=== PATIENT | female | born 1940 | race Caucasian/White ===

== ENCOUNTER 2018-06-04 11:51 | Inpatient (IN) | payer OTHER ==
[~2018-06-04] VITALS: Ht 160 cm; Wt 80.7 kg
[~2018-06-04 11:51] MED LIST: AVAPRO300 MG PO; CALTRATE 600+D1 EAC1 PO; CARDURA8 MG PO; DILTIAZEM 24HR120 MG PO; SYNTHR PO
[2018-06-18] MEDS ORDERED: LEVO-T25 MCG PO (11:25)
[2018-06-18] MEDS ORDERED: AMOX-CLAV 875-1 EACH PO (13:59)
[2018-06-18] MEDS ORDERED: PERCOCET 5-3251 EACH PO (13:59)
[2018-06-18] MEDS ORDERED: CLONAZEPAM1 MG PO (13:59)
[2018-06-18] MEDS ORDERED: DOCUSATE SODIU100 MG PO (13:59)
[2018-06-18] MEDS ORDERED: GABAPENTIN800 MG PO (13:59)
== END 2018-06-19 20:12 | disposition home or self-care (01) | DRG 455 ==
LOC: O/R 06-18 05:05 → SURH 06-18 05:05
PROVIDERS: ADMIT Orthopaedic Surgery Orthopaedic Surgery of the Spine
PROC: 0SG1071 Fusion of 2 or more Lumbar Vertebral Joints with Autologous Tissue Substitute, Posterior Approach, Posterior Column, Open Approach (ICD-10-PCS; 2018-06-18)
PROC: 0SG10AJ Fusion of 2 or more Lumbar Vertebral Joints with Interbody Fusion Device, Posterior Approach, Anterior Column, Open Approach (ICD-10-PCS; 2018-06-18)
PROC: 0ST20ZZ Resection of Lumbar Vertebral Disc, Open Approach (ICD-10-PCS; 2018-06-18)
PROC: 07DS0ZZ Extraction of Vertebral Bone Marrow, Open Approach (ICD-10-PCS; 2018-06-18)
PROC: 4A12X4Z Monitoring of Cardiac Electrical Activity, External Approach (ICD-10-PCS; 2018-06-18)
PROC: 0SG10A0 Fusion of 2 or more Lumbar Vertebral Joints with Interbody Fusion Device, Anterior Approach, Anterior Column, Open Approach (ICD-10-PCS; principal; 2018-06-18 12:30)
DX: M47.26 Other spondylosis with radiculopathy, lumbar region (principal); M48.062 Spinal stenosis, lumbar region with neurogenic claudication; M51.16 Intervertebral disc disorders with radiculopathy, lumbar region; I10 Essential (primary) hypertension; E03.8 Other specified hypothyroidism

== ENCOUNTER → 2023-01-05 06:00 | Outpatient (CLI) | payer OTHER ==
[~2023-01-05] VITALS: Ht 160 cm; Wt 68.0 kg
[~2023-01-05 06:00] MED LIST changes: +AMOX-CLAV 875-1 EACH PO; +CLONAZEPAM1 MG PO; +DOCUSATE SODIU100 MG PO; +GABAPENTIN800 MG PO; +LEVO-T25 MCG PO; +PERCOCET 5-3251 EACH PO
== END | disposition home or self-care (01) ==
LOC: LAB 06:00 → SURH 01-09 08:45 → EDSTATUS 01-09 08:45 → SURH 01-09 11:30
PROVIDERS: ATTEND Orthopaedic Surgery Orthopaedic Surgery of the Spine
DX: Z01.810 Encounter for preprocedural cardiovascular examination (principal); M48.062 Spinal stenosis, lumbar region with neurogenic claudication; M48.07 Spinal stenosis, lumbosacral region; M43.17 Spondylolisthesis, lumbosacral region; M54.17 Radiculopathy, lumbosacral region

== ENCOUNTER 2024-04-29 05:15 | Day surgery (SDC) | payer OTHER ==
[2024-04-25 12:09] LABS: MEAN CORPUSCULAR HEMOGLOBIN 28.4 pg (27.00-32.0); MEAN CORPUSCULAR HGB CONC 32.3 g/dl (32.0-36.0); PLATELET COUNT 255 K/uL (150-450); RED BLOOD COUNT 4.21 M/uL (4.00-6.00); RED CELL DISTRIBUTION WIDTH 14.5 % (11.5-14.5)
[2024-04-25 12:26] LABS: INR 0.96; PARTIAL THROMBOPLASTIN TIME 32.5 SECONDS (22.0-34.0); PROTHROMBIN TIME 10.5 SECONDS (9.0-11.5)
[2024-04-25 12:27] LABS: CALCIUM 9.5 mg/dL (8.5-10.1); CREATININE SERUM 0.84 mg/dL (0.55-1.02); GFR 64.91
[2024-04-25 13:14] LABS: T4 TOTAL 10.48 UG/DL (4.8-13.9); TSH 1.15 uIU/mL (0.358-3.74)
[2024-04-25 13:48] VITALS: BP 120/70
[2024-04-25 14:20] LABS: PH,URINE 5.5 (5.0-8.0); URINE APPEARANCE Cloudy; URINE BILIRRUBIN Negative (NEGATIVE); URINE BLOOD Negative; URINE COLOR Yellow; URINE GLUCOSE Negative (NEGATIVE); URINE KETONE Trace (NEGATIVE); URINE LEUKOCYTE Small; URINE NITRATE Negative; URINE PROTEIN Trace (NEGATIVE); URINE UROBILINOGEN 0.2 E.U./dl
[2024-04-25 14:24] LABS: URINE EPITHELIAL CELLS 26.9 uL (0.0-38.8); URINE RBC 20.1 uL (0.0-20.8); URINE WBC 121.1 uL (0.0-23.2)
[2024-04-25 15:01] LABS: URINE BACTERIA > 9821.5 uL (0.0-1933); URINE CAST 0.14 uL (0.0-1.40); URINE MUCUS MODERATE
[~2024-04-29] VITALS: Ht 160 cm; Wt 68.0 kg
[~2024-04-29 05:15] MED LIST changes: +CARDURA XL4 MG PO; +DOXAZOSIN MESYLA2 MG PO
[2024-04-29] MEDS ORDERED: MEDROLPACK PO (10:34)
[2024-04-29] MEDS ORDERED: PERCOCET 5-3251 EACH PO (10:34)
[2024-04-29] MEDS ORDERED: AMOX-CLAV 875-1 EACH PO (10:34)
[2024-04-29] MEDS ORDERED: COLACE100 MG PO (10:34)
[2024-04-29] MEDS ORDERED: ZOFRAN8 MG PO (10:35)
[2024-04-29] MEDS ORDERED: GABAPENTIN100 M2 PO (10:35)
[2024-04-29] MEDS ORDERED: NEURONTIN300 MG PO (10:35)
[2024-04-29] MEDS ORDERED: METHYLPREDNISOLONE SOD SUCC 40 MG VIAL ONE (10:39)
[2024-04-29] MEDS ORDERED: METHYLPREDNISOLONE ACETATE 80 MG/ML VIAL ONE (10:39)
[2024-04-29] MEDS ORDERED: HEMOSTATIC MATRIX WITH THROMBIN KIT TOP ONE (10:40)
[2024-04-29] MEDS ORDERED: CEFAZOLIN SODIUM 1,000 MG VIAL ONE (10:45)
[2024-04-29] MEDS ORDERED: ENALAPRILAT DIHYDRATE 1.25 MG/ML VIAL IV PRN (10:45)
[2024-04-29] MEDS ORDERED: 0.9 % SODIUM CHLORIDE 1,000 ML IV SCH (10:45)
[2024-04-29] MEDS ORDERED: PROMETHAZINE HCL 50 MG/ML AMPUL IM PRN (10:45)
[2024-04-29] MEDS ORDERED: MORPHINE SULFATE 4 MG/ML CARTRIDGE IV SCH (13:00)
[2024-04-29] MEDS ORDERED: FAMOtidine 20 MG TABLET PO SCH (17:00)
[2024-04-29] MEDS ORDERED: METHYLPREDNISOLONE SOD SUCC 125 MG VIAL IV SCH (17:00)
[2024-04-29] MEDS ORDERED: DOCUSATE SODIUM 100MG CAP PO SCH (17:00)
[2024-04-29] MEDS ORDERED: CEFAZOLIN SODIUM 1,000 MG in 0.9 % SODIUM CHLORIDE 50 ML IV SCH (17:00)
[2024-04-29] MEDS ORDERED: ACETAMINOPHEN 500 MG GEL..CAP PO SCH (20:00)
[2024-04-29] MEDS ORDERED: VANCOMYCIN HCL 1,000 MG VIAL IV SCH (21:00)
[2024-04-29] MEDS ORDERED: GABAPENTIN 800 MG TABLET PO SCH (21:00)
[2024-04-30] MEDS ORDERED: SODIUM CHLORIDE 0.45 % 1,000 ML IV SCH
[2024-04-30] MEDS ORDERED: OxyCODONE HCL 5 MG TABLET (ROXICODONE) PO PRN (06:01)
[2024-04-30] MEDS ORDERED: TAMSULOSIN HCL 0.4 MG CAP PO SCH (09:00)
[2024-04-30] MEDS ORDERED: DOXAZOSIN MESYLATE 4 MG TABLET PO SCH (09:00)
[2024-04-30] MEDS ORDERED: IRBESARTAN 300 MG TABLET PO SCH (09:00)
== END 2024-04-29 12:02 | disposition home or self-care (01) ==
LOC: CIR.AMB 05:15 → O/R 05:15 → SURH 05:15 → EDSTATUS 10:45 → O/R 12:02 → CIR.AMB 12:02
PROVIDERS: ATTEND Orthopaedic Surgery Orthopaedic Surgery of the Spine
DX: M48.02 Spinal stenosis, cervical region (principal); M51.360 Other intervertebral disc degeneration, lumbar region with discogenic back pain only; D66 Hereditary factor VIII deficiency; Z53.09 Procedure and treatment not carried out because of other contraindication

== ENCOUNTER 2024-04-29 12:54 | Outpatient (CLI) | payer OTHER ==
[~2024-04-29 12:54] MED LIST changes: +COLACE100 MG PO; +GABAPENTIN100 M2 PO; +MEDROLPACK PO; +NEURONTIN300 MG PO; +ZOFRAN8 MG PO
[2024-04-29 13:35] LABS: HEMATOCRIT 35.6 % (36.0-45.00); MEAN CELL VOLUME 85.7 fL (80.00-100.00); MEAN CORPUSCULAR HGB CONC 33.8 g/dl (32.0-36.0); PLATELET COUNT 242 K/uL (150-450); RED BLOOD COUNT 4.15 M/uL (4.00-6.00); RED CELL DISTRIBUTION WIDTH 14.5 % (11.5-14.5)
[2024-04-29 13:53] LABS: COL EPI 84 SECONDS (82-175)
[2024-04-29 13:55] LABS: INR 0.99; PARTIAL THROMBOPLASTIN TIME 33.1 SECONDS (22.0-34.0); PROTHROMBIN TIME 10.8 SECONDS (9.0-11.5)
== END 2024-04-29 13:03 | disposition home or self-care (01) ==
LOC: LAB 12:54
PROVIDERS: ATTEND Anesthesiology
DX: D68.9 Coagulation defect, unspecified (principal)

== ENCOUNTER 2024-05-29 12:09 | Inpatient (IN) | payer OTHER ==
[~2024-05-29] VITALS: Ht 91.4 cm; Wt 71.7 kg
[2024-05-29 13:01] VITALS: BP 134/72
[2024-06-03] MEDS ORDERED: CEFAZOLIN SODIUM 1,000 MG VIAL ONE (07:20)
[2024-06-03] MEDS ORDERED: HEMOSTATIC MATRIX WITH THROMBIN KIT TOP ONE (07:22)
[2024-06-03] MEDS ORDERED: PERCOCET 5-3251 EACH PO (07:25)
[2024-06-03] MEDS ORDERED: AMOX-CLAV 875-1 EACH PO (07:25)
[2024-06-03] MEDS ORDERED: COLACE100 MG PO (07:25)
[2024-06-03] MEDS ORDERED: GABAPENTIN100 M2 PO (07:26)
[2024-06-03] MEDS ORDERED: NEURONTIN800 MG PO (07:26)
[2024-06-03] MEDS ORDERED: ZOFRAN8 MG PO (07:26)
[2024-06-03] MEDS ORDERED: PROMETHAZINE HCL 50 MG/ML AMPUL IM PRN (07:30)
[2024-06-03] MEDS ORDERED: ENALAPRILAT DIHYDRATE 1.25 MG/ML VIAL IV PRN (07:30)
[2024-06-03] MEDS ORDERED: 0.9 % SODIUM CHLORIDE 1,000 ML IV SCH (07:30)
[2024-06-03] MEDS ORDERED: METHYLPREDNISOLONE ACETATE 80 MG/ML VIAL ONE (07:33)
[2024-06-03] MEDS ORDERED: ISOPROPYL ALCOHOL 30 ML OUNCE TOP ONE (08:15)
[2024-06-03] MEDS ORDERED: METHYLPREDNISOLONE ACETATE 80 MG/ML VIAL IM ONE (08:15)
[2024-06-03] MEDS ORDERED: VANCOMYCIN HCL 1,000 MG VIAL SPEPROC ONE (08:15)
[2024-06-03] MEDS ORDERED: METHYLPREDNISOLONE SOD SUCC 125 MG VIAL IV ONE ×2 (08:15→08:30)
[2024-06-03] MEDS ORDERED: CEFAZOLIN SODIUM 1,000 MG VIAL IV ONE (08:15)
[2024-06-03] MEDS ORDERED: VANCOMYCIN HCL 1,000 MG VIAL IR ONE (08:15)
[2024-06-03] MEDS ORDERED: VANCOMYCIN HCL 1,000 MG VIAL IV ONE (08:15)
[2024-06-03] MEDS ORDERED: CEFAZOLIN SODIUM 1,000 MG in 0.9 % SODIUM CHLORIDE 50 ML IV SCH (09:00)
[2024-06-03] MEDS ORDERED: FAMOtidine 20 MG TABLET PO SCH (09:00)
[2024-06-03] MEDS ORDERED: METHYLPREDNISOLONE SOD SUCC 125 MG VIAL IV SCH (09:00)
[2024-06-03] MEDS ORDERED: VANCOMYCIN HCL 1,000 MG VIAL IV SCH (09:00)
[2024-06-03] MEDS ORDERED: MORPHINE SULFATE 4 MG/ML CARTRIDGE IV SCH (09:00)
[2024-06-03] MEDS ORDERED: TAMSULOSIN HCL 0.4 MG CAP PO SCH (09:00)
[2024-06-03] MEDS ORDERED: DOCUSATE SODIUM 100MG CAP PO SCH (09:00)
[2024-06-03] MEDS ORDERED: MORPHINE SULFATE 4 MG/ML VIAL IV ONE (12:40)
[2024-06-03 13:21] VITALS: BP 134/72; O2SAT 98
[2024-06-03] MEDS ORDERED: VANCOMYCIN HCL 1,000 MG VIAL ONE (14:14)
[2024-06-03 16:26] VITALS: BP 145/75; O2SAT 100
[2024-06-03] MEDS ORDERED: ACETAMINOPHEN 500 MG GEL..CAP PO SCH (20:00)
[2024-06-03 20:36] VITALS: O2SAT 100
[2024-06-03] MEDS ORDERED: IRBESARTAN 300 MG TABLET PO SCH (21:00)
[2024-06-03] MEDS ORDERED: DOXAZOSIN MESYLATE 2 MG TABLET PO SCH (21:00)
[2024-06-03] MEDS ORDERED: GABAPENTIN 800 MG TABLET PO SCH (21:00)
[2024-06-04] VITALS (8 sets, daily range): BP systolic 110–136; BP diastolic 68–85; O2SAT 96–100
[2024-06-04] MEDS ORDERED: SODIUM CHLORIDE 0.45 % 1,000 ML IV SCH
[2024-06-04] MEDS ORDERED: OxyCODONE HCL 5 MG TABLET (ROXICODONE) PO PRN (06:01)
[2024-06-04] MEDS ORDERED: VANCOMYCIN HCL 1,000 MG VIAL ONE (06:39)
[2024-06-04 08:00] LABS: HEMATOCRIT 31.9 % (36.0-45.00); HEMOGLOBIN 10.3 g/dL (12.0-15.00); MEAN CELL VOLUME 88.8 fL (80.00-100.00); MEAN CORPUSCULAR HEMOGLOBIN 28.6 pg (27.00-32.0); MEAN CORPUSCULAR HGB CONC 32.2 g/dl (32.0-36.0); PLATELET COUNT 211 K/uL (150-450); RED BLOOD COUNT 3.59 M/uL (4.00-6.00); RED CELL DISTRIBUTION WIDTH 13.7 % (11.5-14.5)
[2024-06-04] MEDS ORDERED: DOXAZOSIN MESYLATE 4 MG TABLET PO SCH (09:00)
[2024-06-04] MEDS ORDERED: ENOXAPARIN SODIUM 40 MG/0.4 ML SYRINGE SUBCUTANEO SCH (09:00)
[2024-06-04 09:27] LABS: CALCIUM 8.3 mg/dL (8.5-10.1); CREATININE SERUM 0.79 mg/dL (0.55-1.02); GFR 69.67; POTASSIUM 4.65 mEq/L (3.5-5.1)
[2024-06-04] MEDS ORDERED: CEFAZOLIN SODIUM 1,000 MG VIAL ONE (15:06)
[2024-06-05 00:52] VITALS: BP 143/75; O2SAT 96
[2024-06-05 02:48] VITALS: O2SAT 90
[2024-06-05 08:00] VITALS: BP 153/65; O2SAT 96
[2024-06-05 10:02] VITALS: O2SAT 98
[2024-06-05 13:00] VITALS: BP 153/74; O2SAT 96
[2024-06-05] MEDS ORDERED: SODIUM CL 0.9% 50 ML IV.SOLN IV ONE (14:45)
[2024-06-05 16:00] VITALS: BP 138/63; O2SAT 97
== END 2024-06-05 17:08 | DRG 402 ==
LOC: O/R 06-03 04:50 → SURH 06-03 07:00
PROVIDERS: ADMIT Orthopaedic Surgery Orthopaedic Surgery of the Spine; ATTEND Orthopaedic Surgery Orthopaedic Surgery of the Spine
PROC: 0SG0071 Fusion of Lumbar Vertebral Joint with Autologous Tissue Substitute, Posterior Approach, Posterior Column, Open Approach (ICD-10-PCS; 2024-06-03)
PROC: 0ST20ZZ Resection of Lumbar Vertebral Disc, Open Approach (ICD-10-PCS; 2024-06-03)
PROC: 0QB30ZZ Excision of Left Pelvic Bone, Open Approach (ICD-10-PCS; 2024-06-03)
PROC: 07DR0ZZ Extraction of Iliac Bone Marrow, Open Approach (ICD-10-PCS; 2024-06-03)
PROC: 4A1104G Monitoring of Peripheral Nervous Electrical Activity, Intraoperative, Open Approach (ICD-10-PCS; 2024-06-03)
PROC: 4A12X4Z Monitoring of Cardiac Electrical Activity, External Approach (ICD-10-PCS; 2024-06-03)
PROC: XRGB0R7 Fusion of Lumbar Vertebral Joint using Custom-Made Anatomically Designed Interbody Fusion Device, Open Approach, New Technology Group 7 (ICD-10-PCS; principal; 2024-06-03 07:00)
DX: M48.062 Spinal stenosis, lumbar region with neurogenic claudication (principal); M51.369 Other intervertebral disc degeneration, lumbar region without mention of lumbar back pain or lower extremity pain; M41.56 Other secondary scoliosis, lumbar region; I10 Essential (primary) hypertension; E03.9 Hypothyroidism, unspecified

== ENCOUNTER 2024-06-12 15:34 | Inpatient (IN) | payer OTHER ==
[~2024-06-12] VITALS: Ht 167.6 cm; Wt 68.0 kg
[~2024-06-12 15:34] MED LIST changes: +NEURONTIN800 MG PO
--- NOTE | 2024-06-12 15:48 | NUR ---
SE RECIBE PACIENTE ALERTA Y ORIENTADA X3 EN AMBULANCIA. TRANSFERIDA DE MULTIMEDICAL POR ANEMIA. SE ESTIMAN VITALES Y SE UBICA.
[2024-06-12] MEDS ORDERED: 0.9 % SODIUM CHLORIDE 1,000 ML IV STA (18:43)
--- NOTE | 2024-06-12 19:48 | NUR ---
PTE ALERTA Y ORIENTADA X3. SE EDUCA A PTE SOBRE UNRULY DE MUESTRAS TRATAMIENTO MEDICO ORDENADO POR MD, PTE REFIERE ENTENDER. SE REALIZAN ELIE DE MUESTRAS Y SE ADMINISTRA TRATMIENTO MEDICO BAJO MEDIDAS ASEPTICAS. INTERVENCIONES REALIZADAS POR YARELY GOFF
[2024-06-12 20:14] LABS: HEMATOCRIT 26.5 % (36.0-45.00); HEMOGLOBIN 8.8 g/dL (12.0-15.00); MEAN CELL VOLUME 88.7 fL (80.00-100.00); MEAN CORPUSCULAR HEMOGLOBIN 29.4 pg (27.00-32.0); PLATELET COUNT 317 K/uL (150-450); RED BLOOD COUNT 2.99 M/uL (4.00-6.00); RED CELL DISTRIBUTION WIDTH 14.3 % (11.5-14.5)
[2024-06-12] MEDS ORDERED: ACETAMINOPHEN 500 MG GEL..CAP PO STA (20:20)
[2024-06-12 20:29] LABS: INR 0.94; PROTHROMBIN TIME 10.3 SECONDS (9.0-11.5)
[2024-06-12 20:31] LABS: ALBUMIN 2.7 gm/dL (3.4-5.0); BILIRUBIN TOTAL 0.67 mg/dL (0.3-1.2); CALCIUM 9.2 mg/dL (8.5-10.1); CREATININE SERUM 0.74 mg/dL (0.55-1.02); GFR 75.13; POTASSIUM 4.42 mEq/L (3.5-5.1); TOTAL PROTEIN 5.7 gm/dL (6.4-8.2)
[2024-06-12] MEDS ORDERED: ACETAMINOPHEN 500 MG GEL..CAP PO ONE (21:16)
[2024-06-12] MEDS ORDERED: OxyCODONE HCL/APAP UD (PERCOCET) PO PRN (22:15)
[2024-06-12] MEDS ORDERED: FUROsemide 20 MG/2 ML VIAL IV SCH (22:15)
[2024-06-12] MEDS ORDERED: 0.9 % SODIUM CHLORIDE 1,000 ML IV SCH (22:15)
[2024-06-12] MEDS ORDERED: ACETAMINOPHEN 500 MG GEL..CAP PO PRN (22:15)
[2024-06-13] MEDS ORDERED: IRBESARTAN 300 MG TABLET PO SCH (09:00)
[2024-06-13] MEDS ORDERED: DOXAZOSIN MESYLATE 4 MG TABLET PO SCH (09:00)
[2024-06-13 09:05] VITALS: BP 181/70; O2SAT 99
[2024-06-13 16:31] VITALS: BP 144/72; O2SAT 99
[2024-06-13] MEDS ORDERED: DOXAZOSIN MESYLATE 2 MG TABLET PO SCH (17:00)
[2024-06-13 17:50] VITALS: BP 153/77; O2SAT 98
[2024-06-13 18:47] VITALS: O2SAT 99
[2024-06-13 20:55] VITALS: O2SAT 100; O2SAT 99
[2024-06-13 23:10] LABS: HEMATOCRIT 33.8 % (36.0-45.00); HEMOGLOBIN 11.3 g/dL (12.0-15.00); MEAN CELL VOLUME 88.4 fL (80.00-100.00); MEAN CORPUSCULAR HEMOGLOBIN 29.6 pg (27.00-32.0); MEAN CORPUSCULAR HGB CONC 33.5 g/dl (32.0-36.0); PLATELET COUNT 273 K/uL (150-450); RED BLOOD COUNT 3.83 M/uL (4.00-6.00); RED CELL DISTRIBUTION WIDTH 14.5 % (11.5-14.5)
[2024-06-14] VITALS: BP 178/75; O2SAT 97
[2024-06-14 01:00] VITALS: O2SAT 99
[2024-06-14 05:54] VITALS: O2SAT 90
[2024-06-14 08:00] VITALS: BP 170/91; O2SAT 97
[2024-06-14 08:59] VITALS: O2SAT 94
[2024-06-14] MEDS ORDERED: AMLODIPINE BESYLATE 5 MG TABLET PO SCH (09:00)
[2024-06-14 09:31] LABS: HEMATOCRIT 34.4 % (36.0-45.00); HEMOGLOBIN 11.4 g/dL (12.0-15.00); MEAN CORPUSCULAR HEMOGLOBIN 29.4 pg (27.00-32.0); PLATELET COUNT 294 K/uL (150-450); RED BLOOD COUNT 3.87 M/uL (4.00-6.00); RED CELL DISTRIBUTION WIDTH 14.5 % (11.5-14.5)
[2024-06-14] MEDS ORDERED: ENALAPRILAT DIHYDRATE 2.5 MG/2 ML VIAL IV STA (09:43)
[2024-06-14 13:08] VITALS: O2SAT 97
== END 2024-06-14 14:10 | disposition home or self-care (01) | DRG 812 ==
LOC: ER 15:34 → SEC-K 22:40 → SURG 06-13 16:54
PROVIDERS: ADMIT Internal Medicine; ATTEND Internal Medicine
PROC: 4A12X4Z Monitoring of Cardiac Electrical Activity, External Approach (ICD-10-PCS; principal; 2024-06-13)
PROC: 30233N1 Transfusion of Nonautologous Red Blood Cells into Peripheral Vein, Percutaneous Approach (ICD-10-PCS; 2024-06-13)
DX: D64.89 Other specified anemias (principal); M51.369 Other intervertebral disc degeneration, lumbar region without mention of lumbar back pain or lower extremity pain; I10 Essential (primary) hypertension; E03.9 Hypothyroidism, unspecified; R68.89 Other general symptoms and signs